=== PATIENT | female | born 1960 | race Caucasian/White ===

== ENCOUNTER 2023-12-10 11:49 | Emergency (ER) | payer MEDICARE, BC, SELFPAY ==
[2023-12-10] VITALS (7 sets, daily range): BP systolic 104–144; BP diastolic 63–82; BMI 28.8
--- NOTE | 2023-12-10 13:05 | ED.GENMED ---
History of Present Illness
General
Chief Complaint: Abdominal Symptoms
Source: patient
Exam Limitations: none
Time Seen by Provider: 12/10/23 12:30
Nursing documentation reviewed up to this point in time: agreed with
History of Present Illness
History of Present Illness:
Patient is a 63-year-old female who presents to the ER for evaluation. She reports for the past 8 days she has had a cough and has had nausea vomiting diarrhea. She reports she either vomits or has diarrhea every time she eats or drinks anything.
She also has had some abdominal pain. She went to urgent care today and was sent to the ER to rule out diverticulitis. She reports she was up all night dry heaving. She denies any fevers. She denies any urinary frequency urgency or dysuria. no
recent antibx. She had a chest x-ray at urgent care as well as a COVID test which was negative.
Review of Systems
Review of Systems
Allergies reviewed?: Yes
All Other Systems: ROS reviewed and negative except as documented in HPI and ROS
Constitutional: Reports no symptoms; Denies fever
Respiratory: Reports no symptoms
Cardiac: Reports no symptoms
ABD/GI: Reports abdominal pain, nausea, vomiting and diarrhea
: Reports no symptoms; Denies flank pain, urgency or discharge
Skin: Reports no symptoms
Neurological: Reports no symptoms
Psychiatric: Reports no symptoms
Phy Exam
General Physical Exam
General Presentation: no apparent distress
General age: appears stated age
General Skin: warm and dry
General Habitus: normal
General Mental: alert
General Hydration: appears well hydrated
Gastrointestinal Exam
Gastrointestinal Exam: soft and other (tender left abdomen )
Neurological Exam
Neurological Exam: alert and oriented x3
Musculoskeletal Exam
Musculoskeletal Exam: full ROM
Skin Exam
Skin Exam: normal color and warm/dry
Psychiatric Exam
Psychiatric Exam: normal mood/affect
Course
Orders/Labs/Results
Orders:
Orders
12/10/23 13:00
CMP [Comprehensive Metabolic Panel] Urgent
Complete Blood Count/With Diff Urgent
Lipase Urgent
12/10/23 13:16
CT Abd/pelvis W Iv Cont Urgent
Comment:
Reason For Exam: left sided abd pain
IV Insert/Care/Rem.- Treatment PRN
0.9% Sodium Chloride 1000 ml [Nss] 1,000 ml IV BOLUS
Ondansetron Injectable [Zofran] 4 mg IV NOW STA
12/10/23 16:26
Albuterol Nebs [Ventolin Nebules] 2.5 mg INH R NOW STA
12/10/23 16:27
Ondansetron Injectable [Zofran] 4 mg IV NOW STA
Abnormal Lab Results
12/10/23
13:00
RDW 15.3 H %
(11.5-14.5)
MPV 10.6 H fL
(7.4-10.4)
BUN 26 H mg/dl
(7-17)
Glucose 124 H mg/dl
(70-99)
Calcium 10.4 H mg/dl
(8.4-10.2)
12/10/23 13:00
12/10/23 13:00
Vital Signs
Initial and Last Documented VS:
Initial Vital Signs
Temp Pulse Resp BP Pulse Ox
98.4 F 71 16 124/82 98
12/10/23 11:59 12/10/23 11:59 12/10/23 11:59 12/10/23 11:59 12/10/23 11:59
Last Documented Vital Signs
Temp Pulse Resp BP Pulse Ox
98.4 F 70 16 118/68 100
12/10/23 11:59 12/10/23 17:30 12/10/23 17:30 12/10/23 17:30 12/10/23 17:30
MDM/Problems Addressed
Differential Diagnosis Includes:
Not limited to: Viral syndrome dehydration diverticulitis,
MDM/Problems Addressed:
63 y old female presents to the ER for evaluation nausea vomiting diarrhea. Patient has had this for over a week and also has had a chest cold with cough. No fevers. She went to urgent care and reports they did a chest x-ray which was negative
and she had negative COVID test. Because she had abdominal pain she was sent here to rule diverticulitis. On exam she is mildly tender. She was given Zofran and fluids. She is afebrile and her white count is normal hemoglobin is stable she is
dehydrated with a BUN of 26. CAT scan does show diverticulosis without CT evidence for acute diverticulitis no bowel obstruction no other acute inflammatory process.
Patient has not had any episodes of diarrhea here in the ER I was unable to get a stool specimen because of this.
Patient feeling mildly nauseous now will give dose of Zofran. She was given also a neb for chest congestion. She is nontoxic and feels well enough to go home. Will plan to d/c w/zofran and stool specimen prescription. d/c close outpt f/u by pcp
and to return if any woresning of s/s .
I did review CAT scan findings with patient incidental small nodule discussed importance of close follow-up
*Critical Care Note
Total Time (30-74mins, 75-104mins- exclusive of procedures): Not Applicable
ED Attending Note
-
Portions of this chart may have been created with voice recognition software.� Occasional wrong word or��sound alike� substitutions may have occurred due to the inherent limitations of voice recognition software.
Discharge Plan
Departure
Patient Disposition: Home (Routine Discharge)
Date of Disposition: 12/10/23
Time of Disposition: 16:42
Patient with high blood pressure during this ER visit?: No
Condition: Fair
Covid-19: Not Applicable
Discharge Problem:
Vomiting and diarrhea
Instructions: Diarrhea in teens and adults, Clear Liquid Diet, Nausea and Vomiting, Adult (DC)
Prescriptions:
New
ondansetron 4 mg tablet,disintegrating
4 mg PO Q8H PRN (Reason: nausea and vomiting) Qty: 10 0RF
Referrals:
Giuseppe Johnson MD [Family Provider] -
Activity Restrictions/Additional Instructions:
As discussed a prescription for Zofran was sent to your pharmacy take as directed. Clear fluids for the next 24 hours followed by bland solid foods. A prescription for a stool culture was given to you. As discussed please bring stool specimen to
the nearest lab.
Follow-up with your family doctor in the next 2 days for reevaluation of your symptoms and results of stool specimen. Return to the if any worsening of symptoms if continued vomiting despite Zofran, fevers worsening diarrhea or abdominal pain.
In addition please follow-up with your family doctor for findings of pulmonary nodule
Interventions
Interventions:
*Risk Screen - Suicide Last Done: 12/10/23 12:46
*Neglect/Abuse Screening Last Done: 12/10/23 12:46
ED- Fall Risk Assessment Last Done: 12/10/23 12:46
*ED COVID-19 Vaccine History Last Done: 12/10/23 12:46
*Nursing Disposition Last Done: 12/10/23 17:30
WU-Gsnnvn-Ggionucpsv Assessment Last Done: 12/10/23 12:46
Discharge Date and Time
Discharge Date/Time: 12/10/23 17:30
Print Language: JAPANESE
[2023-12-10 13:12] LABS: % Basophils 0.7 % (0-2); % Eosinophils 1.8 % (0-6); % Immature Granulocytes 0.3 % (0-0.5); % Lymphocytes 28.7 % (20.5-51.1); % Monocytes 6.7 % (1.7-9.3); % Neutrophils 61.8 % (42.2-75.2); Absolute Basophils 0.1 10^3/uL (0-0.2); Absolute Eosinophils 0.1 10^3/uL (0-0.7); Absolute Lymphocytes 2.2 10^3/uL (1.2-3.4); Absolute Monocytes 0.5 10^3/uL (0.1-0.6); Absolute Neutrophils 4.7 10^3/uL (1.4-6.5); Hematocrit 41.1 % (37.0-47.0); Hemoglobin 14.1 g/dL (12.0-16.0); Mean Corp Hgb Conc. 34.3 g/dL (33.0-37.0); Mean Corpuscular Hgb 28.8 pg (27.0-31.0); Mean Platelet Volume 10.6 fL (7.4-10.4); Nucleated Red Blood Cells % 0 %; Platelet Count 328 10^3/uL (130-400); Red Blood Cell Count 4.89 10^6/uL (4.20-5.40); Red Cell Dist. Width 15.3 % (11.5-14.5); White Blood Cell Count 7.6 10^3/uL (4.8-10.8)
[2023-12-10] MEDS: ZOFRAN 4 MG IV ×2 (13:24→16:30)
[2023-12-10] MEDS: NSS 1000 IV (13:26)
[2023-12-10 13:31] LABS: ALT (SGPT) 17 U/L (0-35); AST (SGOT) 19 U/L (14-36); Albumin 4.7 g/dl (3.5-5.0); Alkaline Phosphatase 80 U/L (38-126); Blood Urea Nitrogen 26 mg/dl (7-17); Calcium 10.4 mg/dl (8.4-10.2); Carbon Dioxide 23 mmol/L (22-30); Chloride 102 mmol/L (98-107); Estimated Creatinine Clearance 65 ml/min; Glucose 124 mg/dl (70-99); Lipase 107 U/L (23-300); Potassium 4.7 mmol/L (3.5-5.1); Sodium 140 mmol/L (135-145); Total Bilirubin 0.6 mg/dl (0.2-1.3); Total Protein 6.9 g/dl (6.3-8.2); eGFR > 60.00
[2023-12-10] MEDS: VENTOLIN NEBULES 2.5 MG INH (16:30)
--- NOTE | 2023-12-10 17:30 | EDRN ---
Reviewed discharge instructions with patient. Verbalized understanding. Ambulated with steady gait to the lobby.
--- NOTE | 2023-12-16 10:09 | OID.L.PAT ---
Pulmonary Nodule Pat Letter
- -
12/16/23
LIZETTE PADRON
[address]
[place], [place] [address]
Bud BAUER,
A pulmonary nodule was seen on an imaging study done by [facility]. This was reviewed by the [facility] Pulmonary Nodule Advisory Board and the following recommendation was made:
Recommendation: If patient is a smoker, recommendation Low Dose Lung Cancer Screening program. If patient is not a smoker, based on current guidelines, no further follow up is necessary
If you have any questions, please do not hesitate to contact your primary care physician. If you are in need of a Physician, you can go to [email or web address] and click on 'Find a Provider'. Type 'Family Medicine' in the search.
Oncology Nurse Navigator
[facility]
[phone]
--- NOTE | 2023-12-16 10:11 | OID.L.REC ---
Pulmonary Nodule Follow Up
- Recommendation
12/16/23
Pulmonary Nodule Review Recommendations
Your patient, LIZETTE PADRON, had a pulmonary nodule seen on an imaging study done on 12/10/[address] [facility] Emergency Room.
This was reviewed by the [facility] Pulmonary Nodule Advisory Board and the following recommendation was made:
Recommendation: If patient is a smoker, recommendation Low Dose Lung Cancer Screening program. If patient is not a smoker, based on current guidelines, no further follow up is necessary
If you have any questions please do not hesitate to contact us.
Sincerely,
Oncology Nurse Navigator
[facility]
[phone]
== END 2023-12-10 17:30 | disposition home or self-care (01) ==
LOC: EMR 11:49
PROVIDERS: Nurse Practitioner; EMERGENCY PHYSICIAN Emergency Medicine; FAMILY PHYSICIAN Internal Medicine
DX: R19.7 Diarrhea, unspecified (principal); R11.2 Nausea with vomiting, unspecified; R10.32 Left lower quadrant pain; R05.9 Cough, unspecified; R09.89 Other specified symptoms and signs involving the circulatory and respiratory systems; I10 Essential (primary) hypertension; E11.9 Type 2 diabetes mellitus without complications; E78.00 Pure hypercholesterolemia, unspecified; K22.70 Barrett's esophagus without dysplasia; Z96.651 Presence of right artificial knee joint
CPT/HCPCS: 99285; 96361; 94640; 96374; 96376; 74177; 80053; 83690; 85025; Q9967

== ENCOUNTER → 2023-12-16 12:53 | Outpatient (REF) | payer MEDICARE, BC, SELFPAY | LOC: HWLAB 12:53 | PROVIDERS: ATTENDING PHYSICIAN Nurse Practitioner; FAMILY PHYSICIAN Internal Medicine | DX: K57.32 Diverticulitis of large intestine without perforation or abscess without bleeding (principal); R19.7 Diarrhea, unspecified; R11.10 Vomiting, unspecified | CPT/HCPCS: 87045; 87046; 87427 ==

== ENCOUNTER 2023-12-28 08:26 | Emergency (ER) | payer MEDICARE, BC, SELFPAY ==
[2023-12-28 08:30] VITALS: BP 113/90
[2023-12-28 08:58] LABS: % Basophils 0.7 % (0-2); % Eosinophils 2.2 % (0-6); % Immature Granulocytes 0.2 % (0-0.5); % Lymphocytes 26.1 % (20.5-51.1); % Monocytes 6.6 % (1.7-9.3); % Neutrophils 64.2 % (42.2-75.2); Absolute Basophils 0.1 10^3/uL (0-0.2); Absolute Eosinophils 0.2 10^3/uL (0-0.7); Absolute Lymphocytes 2.3 10^3/uL (1.2-3.4); Absolute Monocytes 0.6 10^3/uL (0.1-0.6); Absolute Neutrophils 5.5 10^3/uL (1.4-6.5); Hematocrit 44.3 % (37.0-47.0); Hemoglobin 15.1 g/dL (12.0-16.0); Mean Corp Hgb Conc. 34.1 g/dL (33.0-37.0); Mean Corpuscular Hgb 28.7 pg (27.0-31.0); Mean Corpuscular Volume 84.2 fL (81.0-99.0); Mean Platelet Volume 11.4 fL (7.4-10.4); Nucleated Red Blood Cells % 0 %; Platelet Count 334 10^3/uL (130-400); Red Blood Cell Count 5.26 10^6/uL (4.20-5.40); Red Cell Dist. Width 13.6 % (11.5-14.5); White Blood Cell Count 8.6 10^3/uL (4.8-10.8)
[2023-12-28 08:59] LABS: Urine Albumin Negative (Neg - Trace); Urine Bilirubin Negative (Negative); Urine Character Clear (Clear); Urine Color Yellow; Urine Glucose 3+ (Negative); Urine Ketone Negative (Negative); Urine Leukocyte 2+ (Negative); Urine Nitrite Negative (Negative); Urine Occult Blood Negative (Negative); Urine Urobilinogen Negative (Neg - 1+)
[2023-12-28 09:16] LABS: ALT (SGPT) 29 U/L (0-35); AST (SGOT) 24 U/L (14-36); Alkaline Phosphatase 84 U/L (38-126); Blood Urea Nitrogen 18 mg/dl (7-17); Calcium 10.7 mg/dl (8.4-10.2); Carbon Dioxide 20 mmol/L (22-30); Chloride 102 mmol/L (98-107); Glucose 236 mg/dl (70-99); Lipase 132 U/L (23-300); Potassium 4.6 mmol/L (3.5-5.1); Sodium 140 mmol/L (135-145); Total Bilirubin 0.7 mg/dl (0.2-1.3); Total Protein 7.1 g/dl (6.3-8.2); eGFR 56.11
[2023-12-28 09:21] LABS: Urine Bacteria Few (Negative); Urine Red Blood Cell 0-2 /HPF (0-2); Urine White Cell 16-20 /HPF (0-5)
[2023-12-28] MEDS: NSS 1000 IV (10:27)
[2023-12-28] MEDS: ATIVAN 1 MG IV (10:27)
[2023-12-28 12:48] VITALS: BP 119/78
--- NOTE | 2023-12-28 13:30 | ED.GENMED ---
History of Present Illness
General
Chief Complaint: Anxiety
Source: patient and spouse
Time Seen by Provider: 12/28/23 09:29
History of Present Illness
History of Present Illness:
63yo female who presents with persistent diarrhea. The patient also states that she cannot stop crying and has been having hot flashes. She intermittently has difficulty taking a deep breath. Patient states she has a history of anxiety. She also
recently stopped pregabalin because she was running out. Patient does take Ativan and has been taking for many years. Patient states she has been seeing her doctors and has been on antibiotics for her diarrhea and had stool studies. She also has
an additional plethora of studies that she is going to get this week for further workup. The patient admits that she really does not drink much water. She only really likes soda and fruit juice and she drinks them to a minimum. She states she has
been eating well because every time she eats she has diarrhea. She also has not been walking and doing other activities because she cannot leave the house. Patient somewhat tearful during history taking. Her doctor did take her off metformin
because they were worried it could be causing the diarrhea
Past History
Past History
ED Past Medical History: Other (Anxiety, hypertension, hypercholesterolemia, type 2 diabetes)
Phy Exam
Physical Exam
Physical Exam:
CONSTITUTIONAL Patient alert and oriented to person, place and time. Well-appearing. Vital signs reviewed.
HEAD atraumatic, normocephalic.
EYES eyelids normal to inspection, Extraocular muscles intact, Conjunctiva normal, Sclera normal.
NECK normal range of motion, Trachea midline, no jugular venous distention.
RESPIRATORY CHEST No respiratory distress noted, Chest expansion equal, Bilateral breath sounds clear.
CARDIOVASCULAR regular rate and rhythm, Heart sounds normal.
ABDOMEN abdomen nontender, Bowel sounds normal. No distention.
BACK normal inspection, no obvious deformities
UPPER EXTREMITY range of motion normal, Motor strength normal, no cyanosis, no edema.
LOWER EXTREMITY range of motion normal, Motor strength normal, no cyanosis, no edema.
NEURO Speech normal, No focal motor deficits, Ivanna coma scale 15, Memory normal, Cranial Nerves intact to screening exam.
SKIN skin warm, dry, and normal in color.
PSYCHIATRIC patient oriented to person place and time, Normal affect.
Course
Orders/Labs/Results
Orders:
Orders
12/28/23 08:42
Complete Blood Count/With Diff Urgent
Comprehensive Metabolic Panel Urgent
Lipase Urgent
Urinalysis Reflex To Culture Urgent
Date Specimen was Collected: 12/28/23
Time Specimen was Collected: 08:35
Urine Microscopic Reflex Cult Urgent
Urine Culture Urgent
ALEXIS Source: U
Specimen Description:
Date Specimen was Collected: 12/28/23
Time Specimen was Collected: 08:35
12/28/23 09:45
0.9% Sodium Chloride 1000 ml [Nss] 1,000 ml IV BOLUS
Lorazepam [Ativan] 1 mg IV NOW STA
Abnormal Lab Results
12/28/23
08:42
MPV 11.4 H fL
(7.4-10.4)
Carbon Dioxide 20 L mmol/L
(22-30)
BUN 18 H mg/dl
(7-17)
Creatinine 1.1 H mg/dL
(0.6-1.0)
Glucose 236 H mg/dl
(70-99)
Calcium 10.7 H mg/dl
(8.4-10.2)
Leukocyte Esterase Rfl 2+ A
(Negative)
Urine WBC (Reflex) 16-20 A /HPF
(0-5)
Urine Bacteria (Reflex) Few A
(Negative)
Urine Glucose 3+ A
(Negative)
12/28/23 08:42
12/28/23 08:42
Vital Signs
Initial and Last Documented VS:
Initial Vital Signs
Temp Pulse Resp BP Pulse Ox
98.2 F 88 16 113/90 98
12/28/23 08:30 12/28/23 08:30 12/28/23 08:30 12/28/23 08:30 12/28/23 08:30
Last Documented Vital Signs
Temp Pulse Resp BP Pulse Ox
96.3 F L 91 19 119/78 98
12/28/23 12:48 12/28/23 12:48 12/28/23 12:48 12/28/23 12:48 12/28/23 08:30
MDM/Problems Addressed
MDM/Problems Addressed:
Diarrhea, anxiety reaction, dehydration
*Pulse Oximetry
Patient hypoxic: no
*Critical Care Note
Total Time (30-74mins, 75-104mins- exclusive of procedures): Not Applicable
Data Reviewed
Source: patient and spouse
Further Testing Considered But Not Given:
Consider chest x-ray but symptoms are clearly related to when she feels anxious. Lungs are clear. Heart is regular. Check EKG for completeness.
Patient Management
Escalation/DeEscalation of care consider admission/obs:
Patient has not been drinking much fluids and has been dealing with this diarrheal illness. I do suspect there is a component of worsening anxiety due to coming off of pregabalin. She does not want to go back on it. I think this is reasonable but
could could be contributing to her symptoms. In addition, I do believe her diarrheal illness is affecting her everyday life contributing to her symptoms. Plan will be to trial Imodium while she is getting the further work up. She will continue to
sparingly use Ativan as needed. Lastly I strongly recommended increasing her fluid intake which her admits has not been very good. Patient agrees outpatient follow-up
ED Attending Note
-
Portions of this chart may have been created with voice recognition software.� Occasional wrong word or��sound alike� substitutions may have occurred due to the inherent limitations of voice recognition software.
Discharge Plan
Departure
Patient Disposition: Home (Routine Discharge)
Date of Disposition: 12/28/23
Time of Disposition: 13:30
Patient with high blood pressure during this ER visit?: No
Discharge Problem:
Diarrhea, Acute dehydration, Anxiety
Instructions: Anxiety, Adult (DC), Diarrhea, Adult ED
Prescriptions:
No Action
ondansetron 4 mg tablet,disintegrating
4 mg PO Q8H PRN (Reason: nausea and vomiting) Qty: 10 0RF
Referrals:
Giuseppe Johnson MD [Family Provider] -
Activity Restrictions/Additional Instructions:
Please drink plenty fluids and consider use of Imodium as discussed. Please also follow-up with the studies recommend you by your doctor. Return immediately for fevers, abdominal pain, chest pain, shortness of breath or any other concerns. Use
your Ativan as needed up to 1 mg 3 times as discussed to avoid further dependence.
Interventions
Interventions:
*Risk Screen - Suicide Last Done: 12/28/23 08:34
*General Assessment Last Done: 12/28/23 12:00
*Neglect/Abuse Screening Last Done: 12/28/23 08:34
ED- Fall Risk Assessment Last Done: 12/28/23 12:00
ED-Psychological Assessment Last Done: 12/28/23 12:00
Discharge Date and Time
Print Language: CANADIAN
== END 2023-12-28 13:40 | disposition home or self-care (01) ==
LOC: EMR 08:26
PROVIDERS: Student in an Organized Health Care Education/Training Program; EMERGENCY PHYSICIAN Emergency Medicine; FAMILY PHYSICIAN Internal Medicine
DX: R19.7 Diarrhea, unspecified (principal); E86.0 Dehydration; F41.9 Anxiety disorder, unspecified; I10 Essential (primary) hypertension; E78.00 Pure hypercholesterolemia, unspecified; E11.9 Type 2 diabetes mellitus without complications
CPT/HCPCS: 99283; 96374; 96361; 80053; 81003; 81015; 83690; 85025; 87086; 93005